=== PATIENT | female | born 1980 | race Hispanic/Latino ===

== ENCOUNTER 2022-12-13 12:43 | Emergency (ER) | payer OTHER ==
[~2022-12-13] VITALS: Ht 157.5 cm; Wt 70.3 kg
[2022-12-13] MEDS ORDERED: ONDANSETRON HCL INJ 2MG/ML 2ML 2 MG/ML VIAL IV STA (13:40)
[2022-12-13] MEDS ORDERED: SODIUM CHLORIDE 0.9% 1000ML 1,000 ML IV SCH (13:45)
[2022-12-13] MEDS ORDERED: POTASSIUM CHLORIDE 20 MEQ TAB CR PO STA (15:01)
[2022-12-13 15:03] VITALS: O2SAT 98
[2022-12-13] MEDS ORDERED: ONDANSETRON ODT4 MG PO (15:17)
[2022-12-13] MEDS ORDERED: CEFDINIR300 MG PO (15:17)
[2022-12-13] MEDS ORDERED: POTASSIUM CHLORIDE 20 MEQ TAB CR PO ONE (15:24)
== END 2022-12-13 15:31 | disposition home or self-care (01) ==
LOC: FSED 12:56
DX: R11.2 Nausea with vomiting, unspecified (principal); K80.20 Calculus of gallbladder without cholecystitis without obstruction; N30.90 Cystitis, unspecified without hematuria
CPT/HCPCS: 74177; 80048; 80076; 81003; 81025; 85025; 96374; 99284; J2405; J7030